=== PATIENT | female | born 1975 | race Caucasian/White ===

== ENCOUNTER 2021-02-26 18:24 | Emergency (ER) | payer OTHER ==
[2021-02-26 18:57] LABS: BASOPHILS # (AUTO) 0.1 10^3/uL (0.0-0.1); BASOPHILS % (AUTO) 0.5 %; EOSINOPHILS # (AUTO) 0.1 10^3/uL (0.0-0.7); EOSINOPHILS % (AUTO) 0.7 %; HGB - HEMOGLOBIN 14.6 g/dL (12.0-16.0); LYMPHOCYTES # (AUTO) 3.4 10^3/uL (1.5-3.5); LYMPHOCYTES % (AUTO) 26.2 %; MEAN CORPUSCULAR HGB CONC 33.2 g/dL (32.0-36.0); MEAN CORPUSCULAR VOLUME 87.3 fL (81.0-99.0); MEAN PLATELET VOLUME 11.6 fL (7.9-10.8); MONOCYTES # (AUTO) 0.8 10^3/uL (0.0-1.0); MONOCYTES % (AUTO) 6.2 %; NEUTROPHILS # (AUTO) 8.5 10^3/uL (1.5-6.6); NEUTROPHILS % (AUTO) 65.9 %; PLT - PLATELET COUNT 361 10^3/uL (130-450); RED BLOOD COUNT 5.04 10^6/uL (4.20-5.40); RED CELL DISTRIBUTION WIDTH 14.2 % (12.0-15.0); WHITE BLOOD COUNT 12.8 x10^3/uL (4.8-10.8)
[2021-02-26] MEDS ORDERED: SODIUM CHLORIDE 0.9% 1,000 ML IV STA (19:03)
[2021-02-26] MEDS ORDERED: ONDANSETRON 4 MG/2 ML VIAL IVP STA (19:03)
[2021-02-26] MEDS ORDERED: HYDROmorphone 1 MG/ML CARPUJECT IVP STA (19:03)
[2021-02-26 19:07] LABS: ALBUMIN 3.3 g/dL (3.2-5.5); BILIRUBIN,TOTAL 0.5 mg/dL (0.2-1.0); CALCIUM 8.2 mg/dL (8.5-10.3); CREATININE 0.7 mg/dL (0.4-1.0); POTASSIUM 3.5 mmol/L (3.5-5.0); TOTAL PROTEIN 6.5 g/dL (6.7-8.2)
[2021-02-26] MEDS ORDERED: IOVERSOL 320 100 ML VIAL IVP ONE ×2 (19:08→19:43)
--- NOTE | 2021-02-26 20:23 | CT Report ---
PROCEDURE: Abdomen/Pelvis W INDICATIONS: diffuse abd pain, vomiting CONTRAST: IV CONTRAST: Optiray 320 ml: 100 PO CONTRAST: *NO PO CONTRAST TECHNIQUE: After the administration of intravenous contrast, 5 mm thick sections acquired from the diaphragms to the symphysis. 5 mm thick coronal and sagittal reformats were acquired. For radiation dose reducti on, the following was used: automated exposure control, adjustment of mA and/or kV according to aj ent size. COMPARISON: None. FINDINGS: Image quality: Excellent. ABDOMEN: Lung bases: Trace right pleural effusion. Heart size is normal. Solid organs: Liver and spleen are normal in size and enhancement. Gallbladder is prominent. No karina cified gallstones. Biliary system is non dilated. Pancreas enhances normally. No peripancreatic flu id question. No adrenal nodules. Lobular appearance of the left kidney versus cortical scarring. No h ydronephrosis. Peritoneum and bowel: Small bowel in the lower left abdomen has a circumferential thickened at appear ance with mural hyperemia and surrounding mesenteric edema (/). There is a small amount of free fl uid in the abdomen and pelvis. There is no small bowel obstruction demonstrated. Somewhat prominent s tool in the right colon. Suspect small lipoma at the hepatic flexure, (/). The appendix is not dil ated. Nodes and vessels: No retroperitoneal or mesenteric adenopathy by size criteria. Aorta and inferior vena cava are normal in size. Miscellaneous: Tiny fat-containing periumbilical hernia. PELVIS: Genitourinary: Bladder wall thickness is normal. Tubal ligation clips. Fluid in the pelvis is low-de nsity. Miscellaneous: No inguinal hernias or adenopathy. Bones: No suspicious bony lesions. No vertebral body compression fractures. IMPRESSION: 1. Left abdomen small bowel wall thickening, mural hyperemia, and surrounding mesenteric edema. Findi ngs most compatible with an enteritis. 2. Mild ascites. 3. Trace right pleural fluid. 4. Prominent gallbladder. This could be due to NPO status. No calcified gallstones. 5. Suspect small hepatic flexure colonic lipoma. Results were communicated to Dr. Yrn Segura at 02/26/2021 8:20 PM PDT. Reviewed by: Carlo Fleming MD on 02/26/2021 8:21 PM PDT Approved by: Carlo Fleming MD on 02/26/2021 8:21 PM PDT Station ID: [id number]
--- NOTE | 2021-02-26 20:31 | ED Physician Documentation ---
PD HPI ABD PAIN - Stated complaint Stated Complaint: ABD PX/VOMITING - Chief complaint Chief Complaint: Abd Pain - History obtained from History obtained from: Patient - History of Present Illness Timing - onset: How many days ago (2) Timing - duration: Days (2) Timing - details: Abrupt onset Pain level max: 5 Pain level now: 5 Quality: Aching, Pain Location: All over / everywhere Worsened by: No: Eating Associated symptoms: Nausea, Vomiting, Diarrhea. No: Fever, Hematemesis, Constipation, Melena, Hematochezia, Dysuria Recently seen: Not recently seen - Additional information Additional information: Patient complains of nausea and vomiting for the past 2 days. Had severe abdominal cramping today, throughout her abdomen, but mainly upper. No fevers. No chills. Review of Systems Constitutional: denies: Fever, Chills Nose: denies: Rhinorrhea / runny nose, Congestion Throat: denies: Sore throat Cardiac: denies: Chest pain / pressure Respiratory: denies: Cough : denies: Dysuria, Frequency, Hesitancy, Now EGA Skin: denies: Rash Musculoskeletal: denies: Neck pain, Back pain Neurologic: denies: Headache PD PAST MEDICAL HISTORY - Past Medical History Past Medical History: Yes Cardiovascular: Hypertension, High cholesterol - Past Surgical History Past Surgical History: No - Present Medications Home Medications: Ambulatory Orders Medication Instructions Recorded Confirmed Atorvastatin [Lipitor] 20 mg ORAL QPM 02/26/21 02/26/21 Dulaglutide [Trulicity] 1.5 mg SQ ONCE 02/26/21 02/26/21 Fluticasone [Flonase] 1 sprays CHRIS BID PRN 02/26/21 02/26/21 HYDROcod/ACETAM 5/325 [[place] 5/325] 1 - 2 ea PO Q6H PRN #14 tablet 02/26/21 Lisinopril [Zestril] 40 mg PO DAILY 02/26/21 02/26/21 Montelukast Sodium 10 mg PO DAILY 02/26/21 02/26/21 Norethindrone AC-Eth Estradiol 1 each PO DAILY 02/26/21 02/26/21 [Microgestin 21 1-20 Tablet] Omeprazole [PriLOSEC] 20 mg PO DAILY 02/26/21 02/26/21 Ondansetron Odt [Zofran] 4 mg TL Q6H PRN #10 tablet 02/26/21 metFORMIN [Glucophage] 500 mg PO BIDWM 02/26/21 02/26/21 - Allergies Allergies/Adverse Reactions: Allergies Allergy/AdvReac Type Severity Reaction Status Date / Time amoxicillin Allergy Anaphylaxis Verified 02/26/21 18:33 Penicillins Allergy Anaphylaxis Verified 02/26/21 18:33 Sulfa (Sulfonamide Allergy Hives Verified 02/26/21 18:33 Antibiotics) sulfamethoxazole Allergy Hives Verified 02/26/21 18:33 [From ] trimethoprim [From ] Allergy Hives Verified 02/26/21 18:33 - Social History Does the pt smoke?: No Smoking Status: Never smoker Does the pt drink ETOH?: No Does the pt have substance abuse?: No - Immunizations Immunizations are current?: Yes - POLST Patient has POLST: No PD ED PE NORMAL - Vitals Vital signs reviewed: Yes - General General: Alert and oriented X 3, No acute distress, Well developed/nourished - HEENT HEENT: PERRL, Moist mucous membranes - Neck Neck: Supple, no meningeal sign - Cardiac Cardiac: RRR, Strong equal pulses - Respiratory Respiratory: No respiratory distress, Clear bilaterally - Abdomen Abdomen: Normal bowel sounds, Soft, Non distended, Other (Mild diffuse tenderness to palpation. No peritoneal signs.) - Back Back: No CVA TTP, No spinal TTP - Derm Derm: Warm and dry - Extremities Extremities: No edema - Neuro Neuro: Alert and oriented X 3 - Psych Psych: Normal mood, Normal affect Results - Vitals Vitals: Vital Signs - 24 hr 02/26/21 02/26/21 18:29 20:34 Temperature 36 C L 36.5 C Heart Rate 104 H 90 Respiratory 16 16 Rate Blood Pressure 147/92 H 130/88 H O2 Saturation 97 98 Oxygen O2 Source Room air - Labs Labs: Laboratory Tests 02/26/21 02/26/21 18:47 18:47 WBC 12.8 H RBC 5.04 Hgb 14.6 Hct 44.0 MCV 87.3 MCH 29.0 MCHC 33.2 RDW 14.2 Plt Count 361 MPV 11.6 H Neut # (Auto) 8.5 H Lymph # (Auto) 3.4 [place] # (Auto) 0.8 Eos # (Auto) 0.1 Baso # (Auto) 0.1 Absolute Nucleated RBC 0.00 Nucleated RBC % 0.0 Sodium 136 Potassium 3.5 Chloride 100 L Carbon Dioxide 24 Anion Gap 12.0 BUN 10 Creatinine 0.7 Estimated GFR (MDRD) 90 Glucose 142 H Calcium 8.2 L Total Bilirubin 0.5 AST 13 ALT 14 Alkaline Phosphatase 67 Total Protein 6.5 L Albumin 3.3 Globulin 3.2 Albumin/Globulin Ratio 1.0 Lipase 26 - Rads (name of study) CT abdomen pelvis Radiology: Prelim report reviewed, EMP read contemporaneously, See rad report (Left abdomen small bowel wall thickening, mural hyperemia, surrounding mesenteric edema. Most compatible with enteritis. Mild ascites. Trace right pleural fluid. Prominent gallbladder no calcified gallstones. Suspect small hepatic flexure colonic lipoma.) PD MEDICAL DECISION MAKING - ED course Complexity details: reviewed results, re-evaluated patient, considered differential, d/w patient ED course: Patient with what appears to be an enteritis. Patient feels much better after pain medication and nausea medication. Tolerating p.o. without difficulty. We will continue supportive care and have her follow-up with her doctor for further care. Patient is well-appearing, nontoxic. Afebrile. Patient counseled regarding signs and symptoms for which I believe and urgent re-evaluation would be necessary. Patient with good understanding of and agreement to plan and is comfortable going home at this time This document was made in part using voice recognition software. While efforts are made to proofread this document, sound alike and grammatical errors may occur. Departure - Departure Disposition: 01 Home, Self Care Clinical Impression: Enteritis Condition: Good Instructions: ED Gastroenteritis Non Infec Follow-Up: PEYTON AARON MD [Primary Care Provider] - Within 1 week Prescriptions: HYDROcod/ACETAM 5/325 [[place] 5/325] 1 - 2 ea PO Q6H PRN #14 tablet PRN Reason: Pain Ondansetron Odt [Zofran] 4 mg TL Q6H PRN #10 tablet PRN Reason: Nausea / Vomiting Comments: Drink plenty of fluids. Return if you worsen. This should improve in the next few days. Follow-up with your doctor for further care. I am prescribing a short course of narcotic pain medication for you. These are potentially dangerous and addictive medications that should be used carefully. These medications may constipate you. Take an juof-eqt-ihfddps stool softener (docusate) twice daily with plenty of water while taking these medications. If you go 24 hours without a bowel movement, take [id number]-[id number] miralax, per package instructions. Do not drink or drive while taking these medications. If you received narcotic or sedating medications while in the emergency department, do not drive for 24 hours. Store this medication in a safe, secure place and out of reach of children. It is a violation of federal law to give or sell this medication to another person or to use in a manner other than prescribed. The ED will not refill narcotic prescriptions, including prescriptions lost or stolen. To dispose of unwanted medications: 1. [facility] at [address] in [place] has a medication drop box. They accept prescription medications (in pill form) Friday through Friday 9:00 a.m. to 5:00 p.m. 2. The [facility] [employer] accepts prescription medications (in pill form only) for disposal year round. Call for more information. 3. Contact the [facility] for the next [facility] sponsored prescription drug collection event. , [phone], or [phone]; Abdomen and pelvis CT results: Left abdomen small bowel wall thickening, mural hyperemia, surrounding mesenteric edema. Most compatible with enteritis. Mild ascites. Trace right pleural fluid. Prominent gallbladder no calcified gallstones. Suspect small hepatic flexure colonic lipoma. Discharge Date/Time: 02/26/21 21:20
[2021-02-26] MEDS ORDERED: HYDROcod/ACETAM 5/325 MG TABLET PO STA (20:51)
[2021-02-26 21:18] VITALS: BP 130/88
== END 2021-02-26 21:20 | disposition home or self-care (01) ==
LOC: ED 18:24
DX: K52.9 Noninfective gastroenteritis and colitis, unspecified (principal); I10 Essential (primary) hypertension
CPT/HCPCS: 36415; 74177; 80053; 83690; 85025; 96374; 96375; 99284; A9270; J1170; Q9967

== ENCOUNTER 2022-06-18 08:24 | Emergency (ER) | payer OTHER ==
--- NOTE | 2022-06-18 09:07 | ED Physician Documentation ---
PD HPI HEADACHE - Stated complaint Stated Complaint: SEVERE MIGRAINE - Chief complaint Chief Complaint: Neuro - History obtained from History obtained from: Patient - History of Present Illness Timing - onset: How many days ago (3) Timing - onset during: Light activity Timing - duration: Days (3) Timing - details: Waxing and waning (had improved with Ibuprofen intermittently but more consistent since yesterday.) Worst headache ever?: No: Worst headache ever? (similar to prior migraines but just longer duration) Location: Right Quality: Throbbing, Aching Associated symptoms: Nausea, Vision changes (light sensitive and some decreased blurring right eye laterally). No: Fever, Stiff neck, Weakness, Numbness Worsened by: Light, Noise Contributing factors: No: Hypertension, Recent illness, Trauma Similar symptoms before: Diagnosis (migraines but only has needed Ibuprofen and rest/darkness in the past. Gets migraine about once every 2 weeks. No prior migraine specific meds.) Recently seen: Not recently seen PD PAST MEDICAL HISTORY - Past Medical History Cardiovascular: Hypertension (but typically good pressures with medication when well. ), High cholesterol Endocrine/Autoimmune: Type 2 diabetes - Past Surgical History Past Surgical History: No - Present Medications Home Medications: Ambulatory Orders Medication Instructions Recorded Confirmed Atorvastatin [Lipitor] 20 mg ORAL QPM 02/26/21 06/18/22 Dulaglutide [Trulicity] 1.5 mg SQ Q7D 02/26/21 06/18/22 Fluticasone [Flonase] 1 sprays CHRIS BID PRN 02/26/21 06/18/22 Lisinopril [Zestril] 40 mg PO DAILY 02/26/21 06/18/22 Montelukast Sodium 10 mg PO DAILY 02/26/21 06/18/22 Omeprazole [PriLOSEC] 20 mg PO DAILY 02/26/21 06/18/22 Ondansetron Odt [Zofran] 4 mg TL Q6H PRN #10 tablet 02/26/21 06/18/22 metFORMIN [Glucophage] 500 mg PO BIDWM 02/26/21 06/18/22 norethindrone ac-eth estradioL 1 each PO DAILY 02/26/21 06/18/22 [Microgestin 21 1-20 Tablet] Ondansetron Odt [Zofran] 4 mg TL Q6H PRN #10 tablet 06/18/22 Rizatriptan Benzoate [Rizatriptan] 5 mg PO Q6H PRN #6 tablet 06/18/22 - Allergies Allergies/Adverse Reactions: Allergies Allergy/AdvReac Type Severity Reaction Status Date / Time amoxicillin Allergy Anaphylaxis Verified 06/18/22 08:30 Penicillins Allergy Anaphylaxis Verified 06/18/22 08:30 Sulfa (Sulfonamide Allergy Hives Verified 06/18/22 08:30 Antibiotics) sulfamethoxazole Allergy Hives Verified 06/18/22 08:30 [From ] trimethoprim [From ] Allergy Hives Verified 06/18/22 08:30 - Social History Does the pt smoke?: No Smoking Status: Never smoker Does the pt drink ETOH?: No Does the pt have substance abuse?: No - Immunizations Immunizations are current?: Yes - POLST Patient has POLST: No PD ED PE NORMAL - Vitals Vital signs reviewed: Yes - General General: Alert and oriented X 3, Well developed/nourished, Other (appears uncomfortable with lights on, better when i turn off main room light. ) - HEENT HEENT: PERRL (light sensitive), EOMI - Neck Neck: Supple, no meningeal sign, No adenopathy - Cardiac Cardiac: RRR, No murmur - Respiratory Respiratory: Clear bilaterally - Derm Derm: Normal color, Warm and dry - Neuro Neuro: Alert and oriented X 3, structural shop helper 2-12 intact, No motor deficit, No sensory deficit, Normal speech, Other Eye Opening: Spontaneous Motor: Obeys Commands Verbal: Oriented GCS Score: 15 Results - Vitals Vitals: Oxygen O2 Source Room air PD MEDICAL DECISION MAKING - ED course Complexity details: re-evaluated patient (headache mostly gone with meds. She has HTN but well controlled typically on meds, so i feel a tryptan is okay to try for her migraines. ), considered differential (seems migraine without red flags. ), d/w patient Departure - Departure Disposition: 01 Home, Self Care Clinical Impression: Migraine headache Qualifiers: Migraine type: unspecified Status migrainosus presence: with status migrainosus Intractability: not intractable Qualified Code(s): G43.901 - Migraine, unspecified, not intractable, with status migrainosus Condition: Stable Record reviewed to determine appropriate education?: Yes Instructions: ED Headache Migraine Follow-Up: PEYTON AARON MD [Primary Care Provider] - Prescriptions: Rizatriptan Benzoate [Rizatriptan] 5 mg PO Q6H PRN #6 tablet PRN Reason: Migraine Ondansetron Odt [Zofran] 4 mg TL Q6H PRN #10 tablet PRN Reason: Nausea / Vomiting Comments: Frequent fluids today and stay well-hydrated. You can use still some ibuprofen or Tylenol if needed for any residual headache. Return if significantly worse again or try other migraine medicine. I prescribed ondansetron nausea medicine to take along with ibuprofen if needed for recurrent migraine headaches. See if those work together and if not you can add migraine specific medicine. I prescribed rizatriptan. You can use the rizatriptan along with the ibuprofen and Zofran together early in the headache as well rather than stepwise if you prefer. See if these work for you to stop the migraine earlier. Follow-up with your primary care about further prescriptions. If you have headaches frequently enough, you may discuss with your primary care about daily medication to reduce the frequency of them. I sent your prescription to the [facility] pharmacy. Discharge Date/Time: 06/18/22 10:42
[2022-06-18] MEDS ORDERED: PROCHLORPERAZINE 10 MG/2 ML VIAL IVP STA (09:24)
[2022-06-18] MEDS ORDERED: KETOROLAC 15 MG/ML VIAL IVP STA (09:24)
[2022-06-18] MEDS ORDERED: SODIUM CHLORIDE 0.9% 1,000 ML IV STA (09:25)
[2022-06-18] MEDS ORDERED: DEXAMETHASONE 10 MG/ML VIAL IVP STA (09:25)
[2022-06-18 10:44] VITALS: BP 180/95
== END 2022-06-18 10:42 | disposition home or self-care (01) ==
LOC: ED 08:24
DX: G43.901 Migraine, unspecified, not intractable, with status migrainosus (principal); I10 Essential (primary) hypertension; E11.9 Type 2 diabetes mellitus without complications; Z79.85 Long-term (current) use of injectable non-insulin antidiabetic drugs
CPT/HCPCS: 96374; 96375; 99281

== ENCOUNTER 2022-11-27 14:58 | Outpatient (CLI) | payer OTHER | END 2022-11-27 14:59 | disposition home or self-care (01) | LOC: DI 14:58 | PROVIDERS: ATTEND Family Medicine | DX: R60.0 Localized edema (principal); I10 Essential (primary) hypertension | CPT/HCPCS: 93306 ==